=== PATIENT | female | born 1970 | race Caucasian/White ===

== ENCOUNTER 2020-02-29 09:47 | Emergency (ER) | payer OTHER, SELFPAY ==
[2020-02-29 09:48] VITALS: BP 124/69; PULSE 69; RESP 16; TEMP 36.2; O2SAT 97; BMI 27.4
--- NOTE | 2020-02-29 09:55 | US_ITS ---
STUDY: ULTRASOUND TRANSVAGINAL CLINICAL: Female, 49 years old. HEAVY VAGINAL BLEEDING AND CRAMPING TECHNIQUE: Transvaginal COMPARISON: None. FINDINGS: Normal uterine size measuring 10.3 cm in maximal craniocaudal dimension. The service cleaner notes 4 uterine fibroids the largest measures 3.9 x 3.9 x 3.5 cm, the smallest 0.9 x 0.9 x 0.6 cm. Normal endometrial thickness measuring five mm. There are no endometrial masses, and there is no fluid in the endometrial cavity. Normal uterine cervix. Right ovary not visualized. Normal left ovary, measuring 2.7 x 2.2 x 2.0 cm. There are multiple follicles with a dominant 1.5 cm cyst. There is mild free fluid in the pelvis, likely physiologic US/Transvaginal Non- IMPRESSION: Enlarged fibroid uterus, endometrium is sonographically normal Right ovary not visualized 1.5 cm simple cyst on the left ovary, given patient''s age, follow-up is recommended to ensure resolution Electronically Signed: Remy Quintana MD at 12:30 EDT , Service support ,
--- NOTE | 2020-02-29 10:10 | ED.VIS.GEN ---
History of Present Illness Chief Complaint: Vag Bleeding Informant: Patient Onset: Days Context: Gradual Onset Timing: Continuous Current Severity: Moderate Maximum Severity: Moderate Narrative: The patient is a 49-year-old female who is otherwise healthy that presents to the emergency department with vaginal bleeding. Patient states that she has been postmenopausal. She states that a few months ago, she was found to be anemic and they were unsure of the cause. She states over the past few days, she is had rather persistent bleeding vaginally. She states that she will intermittently feel lightheaded or just generally weak. She is on iron replacement. She states she is never had a transfusion. She takes no other daily medication. Prior similar symptoms: Yes Recent Illness/Hospitalization: No Past Medical History - Allergies and Home Meds Allergies/Adverse Reactions: Allergies No Known Allergies Allergy (Verified 02/29/20 09:47) Primary Care Physician: Erica Saenz NP-C [Nurse Practitioner] - As soon as possible Prior records reviewed: Yes Past Medical History: None Surgical History: noncontributory Review of Systems General: Denies: Chills, Fever, Sweats Eyes: Denies: Visual changes - bilaterally, Diplopia ENT: Denies: Rhinorrhea, Sore throat Cardiovascular: Denies: Chest pain, Palpitations Respiratory: Denies: Dyspnea, Cough, Dyspnea on exertion Gastrointestinal: Denies: Abdominal pain, Nausea, Vomiting, Diarrhea, Melena, Hematochezia Genitourinary: Denies: Dysuria, Hematuria, Frequency Musculoskeletal: Denies: Back pain, Extremity Pain Skin: Denies: Rash, Wounds Neurological: Denies: Headache, Weakness, Numbness Hematologic: Reports: Easy bleeding Physical Exam Vital Signs/Narrative: Vital Signs Temp Pulse Resp BP Pulse Ox 02/29/20 09:48 97.2 F L 69 16 124/69 H 97 Inital Vital Signs reviewed: Yes General: Well nourished, Well developed, No Acute Distress Head: Normocephalic, Atraumatic Eyes: Perrl, EOMI ENT: Moist mucous membranes, No rhinorrhea Neck: Supple, Nontender Cardiovascular: Regular rate, Regular rhythm, No murmurs Respiratory: No distress, CTA bilaterally, Chest nontender Abdomen: Soft, Nontender, Nondistended, Normal bowel sounds Back: Nontender, Normal Inspection Extremities: Nontender, No edema Skin: Normal color, No rash Neurological: Alert, Oriented x3, Cranial nerves II-XII grossly intact, Normal Strength, Normal Sensation Psychological: Normal affect, Normal Mood Diagnostic/Tx/Re-eval Clinical Impression(s) from Imaging Studies Transvaginal US 02/29/20 09:55 IMPRESSION: Enlarged fibroid uterus, endometrium is sonographically normal Right ovary not visualized 1.5 cm simple cyst on the left ovary, given patient''s age, follow-up is recommended to ensure resolution Electronically Signed: Remy Quintana MD at 12:30 EDT , Service support , Abnormal Lab Results 02/29/20 02/29/20 02/29/20 10:16 10:16 10:16 WBC 7.1 RBC 4.50 Hgb 10.1 L Hct 35.0 L MCV 77.8 L MCH 22.4 L MCHC 28.9 L RDW Std Deviation 74.4 H RDW Coeff of Nicolle 27.6 H Plt Count 353 MPV 9.7 Immature Gran % (Auto) 0.400 Neut % (Auto) 82.4 H Lymph % (Auto) 10.0 L [place] % (Auto) 6.0 Eos % (Auto) 0.6 Baso % (Auto) 0.6 Absolute Neuts (auto) 5.9 Absolute Lymphs (auto) 0.71 L Nucleated RBC % 0 Hypochromasia 1+ Anisocytosis 1+ Sodium 139 Potassium 3.6 Chloride 108 H Carbon Dioxide 28.0 Anion Gap 3 L BUN 7 Creatinine 0.82 Estim Creat Clear Calc 77.69 Est GFR (MDRD) Af Amer 96 Est GFR (MDRD) Non-Af 79 BUN/Creatinine Ratio 8.6 L Glucose 90 Calcium 9.0 Total Bilirubin 0.30 AST 13 L ALT 17 Alkaline Phosphatase 58 Total Protein 7.6 Albumin 3.8 Globulin 3.8 Albumin/Globulin Ratio 1.0 HCG, Quant < 1 Urine Color Urine Clarity Urine pH Ur Specific [place] Urine Protein Urine Glucose (UA) Urine Ketones Urine Occult Blood Urine Nitrite Urine Bilirubin Urine Urobilinogen Ur Leukocyte Esterase Urine RBC Urine WBC Ur Squamous Epith Cells Urine Bacteria Urine Mucus Blood Type Antibody Screen 02/29/20 02/29/20 10:16 13:30 WBC RBC Hgb Hct MCV MCH MCHC RDW Std Deviation RDW Coeff of Nicolle Plt Count MPV Immature Gran % (Auto) Neut % (Auto) Lymph % (Auto) [place] % (Auto) Eos % (Auto) Baso % (Auto) Absolute Neuts (auto) Absolute Lymphs (auto) Nucleated RBC % Hypochromasia Anisocytosis Sodium Potassium Chloride Carbon Dioxide Anion Gap BUN Creatinine Estim Creat Clear Calc Est GFR (MDRD) Af Amer Est GFR (MDRD) Non-Af BUN/Creatinine Ratio Glucose Calcium Total Bilirubin AST ALT Alkaline Phosphatase Total Protein Albumin Globulin Albumin/Globulin Ratio HCG, Quant Urine Color Yellow Urine Clarity Sl. Cloudy Urine pH 6.0 Ur Specific [place] 1.010 Urine Protein Negative Urine Glucose (UA) Normal Urine Ketones Negative Urine Occult Blood 250 H Urine Nitrite Negative Urine Bilirubin Negative Urine Urobilinogen Normal Ur Leukocyte Esterase Negative Urine RBC 25-50 SEEN Urine WBC 0 SEEN Ur Squamous Epith Cells 0-5 SEEN Urine Bacteria 1+ Urine Mucus 0 SEEN Blood Type A NEGATIVE Antibody Screen NEGATIVE - Medical Decision Making IV was established. The patient has a stable anemia of 10.1. I did review her lab work from 2 weeks ago when she was in the nines. Given her age and recurrent bleeding, I did obtain an ultrasound. This does demonstrate some fibroids. I discussed the patient with Erica Saenz, who the patient is seen before. She is going to schedule her for outpatient endometrial biopsy. We will hold on progesterone therapy until this is completed. The patient is comfortable with this plan of care. Impression 1. Vaginal bleeding secondary to uterine fibroids ED Disposition - Plan for ED Patient: Disposition: Home or Assisted Living Instructions: ED FIBROIDS Referrals: Erica Saenz, [employer] PRO[employer] ANALYST-C [Nurse Practitioner] - As soon as possible
[2020-02-29] MEDS: 0.9% Normal Saline 1,000 ML 1000 ML IV (10:31)
[2020-02-29 10:34] LABS: Absolute Lymphocyte Count 0.71 X10^3/uL (0.83-4.51); Absolute Neutrophil Count 5.9 X10^3/uL (2.0-7.7); Basophil# 0.04 X10^3/uL; Basophil% 0.6 % (0-1); Eosinophil# 0.04 X10^3/uL; Eosinophils% 0.6 % (0-5); Hemoglobin 10.1 g/dL (12.0-15.0); Lymphocyte # 0.71 X10^3/ul (4.0); Mean Corp Hgb Conc 28.9 g/dL (32-36); Mean Corpuscular Hgb 22.4 pg (27.0-32.0); Mean Corpuscular Volume 77.8 fL (81-99); Mean Platelet Vol. 9.7 fl (6.2-12.0); Monocyte# 0.43 X10^3/uL; NRBC Flagged by Analyzer 0 % (0-5); Neutrophil # 5.86 X10^3/uL (2.7-7.7); Neutrophil % 82.4 % (47-70); POSITIVE MORPHOLOGY YES; Platelet Count 353 K/mm3 (150-450); RBC Distribution Width CV 27.6 % (11.6-14.6); RBC Distribution Width SD 74.4 fl (35.1-43.9); White Blood Count 7.1 K/mm3 (4.4-11.0)
[2020-02-29 10:44] LABS: Differential Indicated SCAN CRITERIA MET
[2020-02-29 10:54] LABS: AST(SGOT) 13 U/L (15-37); Alanine Aminotransfer ALT/SGPT 17 U/L (13-56); Albumin, Serum 3.8 g/dL (3.2-5.0); Alkaline Phosphatase 58 U/L (45-117); Anion Gap 3 (5-15); BUN 7 mg/dL (7-18); BUN/Creat Ratio 8.6 RATIO (10-20); Chloride 108 mmol/L (98-107); Creatinine, Serum 0.82 mg/dL (0.55-1.02); EST Glomerular Filtration Rate 79 mL/min (>60); Est Glom Filt Rate - Afr Amer 96 mL/min (>60); Estimated Creatinine Clearance 77.69 ml/min; Globulin 3.8 g/dL (2.2-4.2); Glucose 90 mg/dL (74-106); Potassium 3.6 mmol/L (3.5-5.1); Protein, Total 7.6 g/dL (6.4-8.2); Sodium Level 139 mmol/L (136-145)
[2020-02-29 10:59] LABS: hCG Titer Quant., Serum < 1 mIU/mL (1-3)
[2020-02-29 11:01] LABS: Anisocytosis 1+; Hypochromasia 1+
[2020-02-29 12:00] VITALS: RESP 14
[2020-02-29 13:42] VITALS: BP 134/62; PULSE 71; RESP 15; O2SAT 98
[2020-02-29 13:46] LABS: Mucous, Urine 0 SEEN /hpf (<or=2+); White Blood Cells 0 SEEN /hpf (0-5)
[2020-02-29 13:50] LABS: Color, Urine Yellow (Yellow); Glucose, Dipstick Normal (Normal); Ketone-Dipstick Negative (Negative); Leukocyte Esterase-Dipstick Negative /ul (Negative); Nitrite-Dipstick Negative (Negative); Occult Blood-Urine 250 /ul (Negative); Protein-Dipstick Negative (Negative); Urine Bilirubin Dipstick Negative (Negative); Urine Clarity Sl. Cloudy (Clear); Urine Urobilinogen Normal (Normal)
[2020-02-29 13:59] LABS: Red Blood Cells-Urine 25-50 SEEN /hpf (0-5)
[2020-02-29 14:00] LABS: Bacteria 1+ /hpf (None Seen); Squamous Epithelial Cells - UA 0-5 SEEN /hpf (5-10)
== END 2020-02-29 13:43 | disposition home or self-care (01) ==
PROVIDERS: Emergency Provider Emergency Medicine
DX: D25.9 Leiomyoma of uterus, unspecified (principal)
CPT/HCPCS: 76830; 80053; 81001; 84702; 85025; 86850; 86900; 86901; 96360; 96361; 99283; J7030; A4216

== ENCOUNTER → 2020-03-01 16:26 | Outpatient (CLI) | payer OTHER, SELFPAY ==
--- NOTE | 2020-03-01 | EMB_PTH ---
PATIENT: MOE COY LOC: [facility] U#:[id number] AGE/SX: 54/F ROOM: RE03/01/[address]: STEVE Hall : 1970 BED: DIS: SPEC #: [id number] RECD: 03/01/20 16:24 STATUS: AKASH TANNER #: [id number] JEN: 03/01/20 00:[address]: Erica Saenz NP DEPT: SURGICAL PATHOLOGY RECD BY: Jose Martin Sarmiento ENTERED: 03/02/20 12:08 SP TYPE: ENDOM BX/C JIMENA DR: No Primary Care Phys Tissues: Endometrium, NOS Procedures: Surgery Specimen Level IV HEADER OPERATION: Endometrial biopsy PRE-OP DIAGNOSIS: Abdominal bleeding, fibroids TISSUE SUBMITTED: Endometrial biopsy MICROSCOPIC DIAGNOSIS Endometrium, biopsy: Fragments of benign superficial glandular mucosa. See comment. AM:barry 03/03/20 COMMENT The specimen primarily consists of clotted blood. Clinical correlation is suggested. MICROSCOPIC DESCRIPTION Slides are reviewed. GROSS DESCRIPTION Received is one container labeled with the patient's name and not further designated. The specimen consists of multiple irregular fragments of dark fisher soft tissue that in aggregate measure 2 x 1.8 x 0.2 cm. The specimen is totally submitted in one cassette. / AM:barry 03/02/20 TC:5 [facility]: [id number]
[2020-03-01 13:02] VITALS: BMI 27.5
== END ==
PROVIDERS: Referring Provider Nurse Practitioner Women's Health; Visit Provider Nurse Practitioner Women's Health
DX: N93.9 Abnormal uterine and vaginal bleeding, unspecified (principal)
CPT/HCPCS: 88305